=== PATIENT | female | born 1975 | race Native Hawaiian/Other Pacific Islander ===

== ENCOUNTER 2022-12-28 14:18 | Outpatient (CLI) | payer OTHER ==
[~2022-12-28 14:18] MED LIST: ADIPEX PO; ADIPEX-P37.5 M1 OR; CIPRO500 MG PO; ESGI1 PO; HYDR25TA60 PO; TOPAMAX25 MG OR
== END 2022-12-28 19:00 | disposition home or self-care (01) ==
LOC: RAD 14:18
PROVIDERS: ATTEND Physician Assistant
DX: M54.59 Other low back pain (principal)